=== PATIENT | male | born 1965 | race Caucasian/White ===

== ENCOUNTER 2017-12-15 02:10 | Inpatient (IN) ==
[2017-12-15 02:32] LABS: Baso # (Auto) 0.1 th/mm3 (0.0-0.2); Baso % (Auto) 0.9 % (0.0-2.0); Eos # (Auto) 0.5 th/mm3 (0.0-0.4); Eos % (Auto) 3.9 % (0.0-4.0); Hemoglobin 14.8 gm/dL (13.0-17.0); Lymph # (Auto) 5.4 th/mm3 (1.0-4.8); Lymph % (Auto) 40.6 % (9.0-44.0); Mean Corpuscular HGB Conc 35.3 % (32.0-36.0); Mean Corpuscular Volume 82.1 fL (80.0-100.0); Mean Platelet Volume 7.2 fL (7.0-11.0); Mono # (Auto) 0.8 th/mm3 (0.0-0.9); Mono % (Auto) 5.7 % (0.0-8.0); Neut # (Auto) 6.5 th/mm3 (1.8-7.7); Neut % (Auto) 48.9 % (16.0-70.0); Platelet Count 277 th/mm3 (150-450); Red Blood Count 5.11 mil/mm3 (4.50-5.90); Red Cell Distribution Width 13.2 % (11.6-17.2); White Blood Count 13.3 th/mm3 (4.0-11.0)
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
[2017-12-15] MEDS ORDERED: Bisacodyl 10 MG Supp RECTAL PRN ×2 (02:39→06:22)
[2017-12-15] MEDS ORDERED: Naloxone Inj 0.4 MG/ML Vial IV.PUSH PRN ×2 (02:39→02:45)
[2017-12-15] MEDS ORDERED: Post-op Orders (for Pharmacy) OTHER ONE (02:39)
[2017-12-15 02:43] LABS: Activated Partial Thrombo Time 23.9 sec (24.3-30.1); Prothrombin Time 9.7 sec (9.8-11.6)
[2017-12-15] MEDS ORDERED: Sod Chloride 0.9% Inj 1,000 ML IV.CONT SCH (02:45)
[2017-12-15 03:00] LABS: Eosinophils 3 % (0-4); Monocytes 5 % (0-8)
[2017-12-15 03:01] LABS: Lymphocytes 38 % (9-44)
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
[2017-12-15 03:04] LABS: Platelet Estimate Normal (Normal); Platelet Morphology Normal (Normal); RBC Morphology Normal (Normal)
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
[2017-12-15] MEDS: HYDROmorphone PCA Inj 6 MG/30 ML PCA.VIAL PCA PRN (03:26)
[2017-12-15] MEDS ORDERED: fentaNYL Citrate Inj 100 MCG/2 ML Ampul ONE ×5 (03:57→13:57)
[2017-12-15] MEDS ORDERED: ceFAZolin 2 GM Premix Inj 2 GM/50 ML PIGGYBACK IV.SIG ONE (03:57)
[2017-12-15] MEDS ORDERED: Gentamicin/NS 80 mg Premix 100 ML IV.SIG ONE (03:57)
[2017-12-15] MEDS ORDERED: Vancomycin Inj 1,000 MG in Sodium Chlor 0.9% Inj 250 ML IV.SIG SCH (04:00)
[2017-12-15] MEDS ORDERED: fentaNYL Citrate Inj 250 MCG/5 ML Ampul ONE (04:05)
[2017-12-15] MEDS ORDERED: Glycopyrrolate Inj 1 MG/5 ML Syringe IV.PUSH ONE (04:21)
[2017-12-15] MEDS ORDERED: Lidocaine PF 1% Inj 5 ML Syringe OTHER ONE ×2 (04:21→11:05)
[2017-12-15] MEDS ORDERED: Neostigmine Inj 5 MG/5 ML Syringe IV.PUSH ONE (04:21)
[2017-12-15] MEDS ORDERED: Sodium Chlor 0.9% Inj 250 ML IV.CONT ONE (04:21)
[2017-12-15] MEDS ORDERED: Succinylcholine Inj 100 MG/5 ML Syringe IV.PUSH ONE ×2 (04:21→11:05)
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
[2017-12-15] MEDS ORDERED: Zolpidem Tartrate 5 MG Tablet PO PRN (06:22)
[2017-12-15] MEDS ORDERED: Aluminum/Magnesium/Simethacone Susp 30 ML UDC PO PRN (06:22)
[2017-12-15] MEDS ORDERED: Morphine Inj 4 MG/ML Vial IV.PUSH PRN (06:22)
[2017-12-15] MEDS ORDERED: Post-op Orders (for Pharmacy) OTHER STA (06:22)
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
[2017-12-15] MEDS ORDERED: *Meperidine Inj 25 MG/ML Vial PERIprocedural Use ONLY ONE ×2 (07:10→13:08)
[2017-12-15] MEDS ORDERED: Senna/Docusate Sodium 8.6/50 MG Tablet PO SCH (09:00)
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
[2017-12-15] MEDS: Senna/Docusate Sodium 8.6/50 MG Tablet PO SCH ×2 (09:38→20:03)
[2017-12-15] MEDS: Multivitamin/Minerals Therapeutic Tablet PO SCH ×2 (09:38→20:03)
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
[2017-12-15] MEDS ORDERED: Esmolol Bolus Inj 100 MG/10 ML Vial IV.PUSH ONE (11:05)
[2017-12-15] MEDS ORDERED: *morphine SULFATE 4 MG/ML PERIprocedure ONLY ONE (13:45)
[2017-12-15] MEDS ORDERED: *Promethazine Inj 25 MG/ML Vial PERIprocedural use ONLY ONE (13:47)
--- NOTE | 2017-12-15 14:11 | P.CONOP ---
[facility] Orthopedics Consult Note - HPI Consult date: 12/15/17 Requesting physician: Destin Davis Consult reason: fracture Chief complaint: open Left Tib/Fib Review of Systems Constitutional: Denies weakness, Denies weight gain Eyes: Denies blurry vision Ears, Nose, Mouth, and Throat: Denies abnormal hearing Cardiovascular: Denies chest pain Respiratory: Denies cough, Denies wheezing Gastrointestinal: Denies abdominal pain Musculoskeletal: Reports joint pain Neurologic: Denies tingling/numbness/burning sensations Psychiatric: Denies anxiety, Denies depression PMFSH - History History Provided By: Patient - Medical History Medical History: Medical History (Last Reviewed 12/15/17 @ 04:30 by Aaron Kahn MD) HTN (hypertension), benign - Tobacco History Second Hand Smoke Exposure: No Tobacco Use In Past 30 Days: No Smoking Status: Former smoker - Alcohol History How Often Do You Have a Drink Containing Alcohol: 2 to 4 times a month - Substance Use History Substance History: No History of Abuse - Immunization History Tetanus Immunization: <5 Years Tetanus Immunization Year if Known: 2017 Hx Influenza Vaccine This Season: No Medications and Allergies Active Medications: Active Medications Hydrocodone Bitart/Acetaminophen ([place] 5/325) 1 tab PO Q4H PRN PRN Reason: PAIN LESS THAN 5 ON SCALE Hydrocodone Bitart/Acetaminophen ([place] 5/325) 2 tab PO Q6H PRN PRN Reason: PAIN SCALE 5 TO 10 Al Hydrox/Mg Hydrox/Simethicone (Mag-Al Plus Susp Liq) 30 ml PO Q6H PRN PRN Reason: INDIGESTION Al Hydroxide/Mg Hydroxide (Milk Of Magnesia Liq) 30 ml PO BID PRN PRN Reason: Mild Constipation Bisacodyl (Dulcolax Supp) 10 mg RECTAL DAILY PRN PRN Reason: SEVERE CONSITIPATION Diphenhydramine HCl (Benadryl) 25 mg PO Q6H PRN PRN Reason: ITCHING Metronidazole/Sodium Chloride (Flagyl 500 Mg Inj) 100 mls @ 200 mls/hr IV.SIG Q8H [facility] Stop: 12/15/17 19:29 Last Infusion: 12/15/17 03:58 Dose: Infused Hydromorphone/Sodium Chloride (Dilaudid Flange Machine Operator Inj) 6 mg in 30 mls @ 0 mls/hr CASE FITTER UNSCH PRN PRN Reason: per CASE FITTER parameters Last Admin: 12/15/17 03:26 Dose: 0 mls/hr Cefazolin Sodium 1,000 mg/ (Sodium Chloride) 100 mls @ 200 mls/hr IV.SIG Q6H [facility] Stop: 12/17/17 09:59 Last Infusion: 12/15/17 10:09 Dose: Infused Lactated Ringer's (Lr 1000 Ml Inj) 1,000 mls @ 80 mls/hr IV.CONT .[id number] [facility] Last Admin: 12/15/17 09:39 Dose: Not Given Gentamicin Sulfate/Sodium Chloride (Gentamicin/Ns 80 Mg Premix) 100 mls @ 200 mls/hr IV.SIG Q8H [facility] Stop: 12/17/17 13:59 Lactulose (Lactulose Liq) 30 ml PO DAILY PRN PRN Reason: SEVERE CONSITIPATION Miscellaneous Information ([facility] [place] Nursing Information) 0 each OTHER UNSCH PRN PRN Reason: SEE LABEL COMMENTS Stop: 12/16/17 07:09 Multivitamins/Minerals (Theragran-M) 1 tab PO BID [facility] Stop: 02/13/18 08:59 Last Admin: 12/15/17 09:38 Dose: 1 tab Naloxone HCl (Narcan Inj) 0.4 mg IV.PUSH UNSCH PRN PRN Reason: SEE LABEL COMMENTS Naloxone HCl (Narcan Inj) 0.4 mg IV.PUSH PRN PRN PRN Reason: SEE LABEL COMMENTS Ondansetron HCl (Zofran Inj) 4 mg IV.PUSH Q6H PRN PRN Reason: NAUSEA OR VOMITING Pantoprazole Sodium (Protonix) 40 mg PO DAILY [facility] Last Admin: 12/15/17 09:38 Dose: 40 mg Senna/Docusate Sodium (Jannet-Colace) 1 tab PO BID [facility] Last Admin: 12/15/17 09:38 Dose: 1 tab Sennosides (Senokot) 17.2 mg PO BID PRN PRN Reason: Moderate Constipation Sodium Chloride (Ns Flush) 2 ml IV.FLUSH BID [facility] Last Admin: 12/15/17 09:38 Dose: 2 ml Sodium Chloride (Ns Flush) 2 ml IV.FLUSH PRN PRN PRN Reason: FLUSH AFTER USING IV ACCESS Zolpidem Tartrate (Ambien) 5 mg PO HS PRN PRN Reason: INSOMNIA Allergies Allergy/AdvReac Type Severity Reaction Status Date / Time No Known Allergies Allergy Verified 12/15/17 03:18 Home Medications Medication Instructions Recorded Confirmed Type No Known Home Medications 12/15/17 12/15/17 History Exam Vital signs: Vital Signs 12/15/17 02:12 12/15/17 03:30 12/15/17 03:56 Temperature Pulse Rate Respiratory Rate 21 Blood Pressure Pulse Oximetry 98 94 L 12/15/17 07:08 12/15/17 07:30 12/15/17 07:45 Temperature 98.6 F Pulse Rate 105 H 106 H 109 H Respiratory Rate 15 16 14 Blood Pressure 168/113 H 157/82 H 165/92 H Pulse Oximetry 95 97 98 12/15/17 08:00 12/15/17 10:00 Temperature Pulse Rate 132 H 128 H Respiratory Rate Blood Pressure Pulse Oximetry 99 Intake & Output 12/14/17 12/15/17 12/15/17 18:59 06:59 18:59 Intake Total 100 / 100 100 / 100 Output Total 400 / 400 250 / 250 Balance -300 / -300 -150 / -150 Weight 117.6 kg Intake: IV 100 / 100 100 / 100 Ancef Inj 1,000 MG In NS Inj 100 / 100 100 ML @ 200 mls/hr IV.SIG Q6H [facility] Rx#:[id number] Flagyl 500 MG Inj 100 ML @ 200 100 / 100 mls/hr IV.SIG Q8H [facility] Rx#: [id number] Output: Urine 400 / 400 Urine Amount (Catheter) 250 / 250 Indwelling Urethral Catheter 250 / 250 Other: # Voids 1 Date of Last Bowel Movement 12/14/17 12/14/17 - Constitutional no acute distress - Routine HEENT Exam Head: Present: normocephalic, atraumatic Eye: Present: PERRL - Routine Respiratory Exam Absent: accessory muscle use, wheezes - Routine Cardiovascular Exam Present: RRR - Routine Abdominal Exam Present: soft. Absent: distended - Routine Extremities Exam Comments: Screening evaluation of the right upper and left lower extremities demonstrates painless passive ROM of all joints. There are post-operative dressings s/p left BKA. Evaluation of the left upper extremity demonstrates left ulnar gutter splint in tact. Nontender through exposed fingers. +EPL/FPL/FDS/FDP/EDC. Sensation is intact to the median/radial/ulnar nerve distribution. BCR<2s. - Routine Neurological Exam Present: alert, oriented X3 Results - Labs Result Diagrams: 12/15/17 02:13 Labs: Laboratory Results - last 24 hr 12/15/17 12/15/17 12/15/17 02:13 02:13 02:13 WBC 13.3 H RBC 5.11 Hgb 14.8 POC Hgb (Calc) 13.6 Hct 42.0 POC Hct 40.0 MCV 82.1 MCH 29.0 MCHC 35.3 RDW 13.2 Plt Count 277 MPV 7.2 Prelim Diff (Auto) Slide review pending Neut % (Auto) 48.9 Lymph % (Auto) 40.6 [place] % (Auto) 5.7 Eos % (Auto) 3.9 Baso % (Auto) 0.9 Neut # (Auto) 6.5 Lymph # (Auto) 5.4 H [place] # (Auto) 0.8 Eos # (Auto) 0.5 H Baso # (Auto) 0.1 WBC Differential Manual diff final Seg Neuts % (Manual) 54 Lymphocytes % (Manual) 38 Monocytes % (Manual) 5 Eosinophils % (Manual) 3 Abs Neuts (Manual) 7.2 Differential Comment . Platelet Estimate Normal Platelet Morphology Normal RBC Morphology Normal PT 9.7 L INR 1.0 APTT 23.9 L POC Sodium 140 POC Potassium 3.4 L POC Chloride 101 L POC BUN 15 POC Creatinine 1.1 POC Glucose 132 H Nasal Screen MRSA (PCR) Staph aureus (PCR) Blood Type Antibody Screen 12/15/17 12/15/17 02:13 03:25 WBC RBC Hgb POC Hgb (Calc) Hct POC Hct MCV MCH MCHC RDW Plt Count MPV Prelim Diff (Auto) Neut % (Auto) Lymph % (Auto) [place] % (Auto) Eos % (Auto) Baso % (Auto) Neut # (Auto) Lymph # (Auto) [place]vert # (Auto) Eos # (Auto) Baso # (Auto) WBC Differential Seg Neuts % (Manual) Lymphocytes % (Manual) Monocytes % (Manual) Eosinophils % (Manual) Abs Neuts (Manual) Differential Comment Platelet Estimate Platelet Morphology RBC Morphology PT INR APTT POC Sodium POC Potassium POC Chloride POC BUN POC Creatinine POC Glucose Nasal Screen MRSA (PCR) Negative Staph aureus (PCR) Positive Blood Type O Positive Antibody Screen Negative - Diagnostic results Imaging: Impressions Foot X-Ray 12/15/17 00:00 CONCLUSION: Limited fluoroscopic images left foot noted. Shoulder X-Ray 12/15/17 00:00 CONCLUSION: Negative exam with no evidence of acute fracture or malalignment. Chest X-Ray 12/15/17 02:12 CONCLUSION: No acute cardiopulmonary disease Pelvis X-Ray 12/15/17 02:12 CONCLUSION: No acute fracture Foot X-Ray 12/15/17 02:13 CONCLUSION: 1. Extensive soft tissue injury with distal fibular and tibia fractures. 2. Calcaneal fracture. Tibia/Fibula X-Ray 12/15/17 02:13 CONCLUSION: Displaced distal tibia and fibular fractures. Abdomen/Pelvis CT 12/15/17 02:19 CONCLUSION: 1. No abdominal visceral injury Chest CT 12/15/17 02:19 CONCLUSION: 1. No acute thoracic injury Hand X-Ray 12/15/17 02:19 CONCLUSION: Fourth metacarpal fracture Tibia/Fibula X-Ray 12/15/17 02:19 CONCLUSION: Soft tissue injury without definite fracture Cervical Spine CT 12/15/17 02:20 CONCLUSION: 1. No acute fracture or subluxation. Face CT 12/15/17 02:20 CONCLUSION: 1. Facial soft tissue swelling without fracture. Head CT 12/15/17 02:20 CONCLUSION: 1. No acute intracranial abnormality . Wrist/Hand x-ray: report reviewed, image reviewed Assessment and Plan - Assessment and Plan 52-year-old [place] [facility] [place] consult requested for left fourth metacarpal fracture. - XR reviewed demonstrates minimally displaced shaft fracture. Will order 3 view hand for completeness. Will plan to treat non-operatively. NWB to the left hand x 6 weeks. Will transition from ulnar gutter splint to ulnar gutter cast in the office. May weight bear through the left forearm and elbow. Follow up Dr. Ledezma with [facility] ([phone]) in 2 weeks for left hand. Other orthopedic injuries being managed by my partners: 1mangled left lower extremity with open comminuted distal tibia/fibula and highly comminuted significantly displaced calcaneal fracture s/p left BKA 2left foot metatarsal fracture.
[2017-12-15] MEDS: Gentamicin/NS 80 mg Premix 100 ML IV.SIG SCH ×2 (15:51→23:21)
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
--- NOTE | 2017-12-15 19:37 | ECG ---
Date Performed: 12/15/2017 Time Performed: 10:39:20 PTAGE: 89 years EKG: Sinus tachycardia. Inferior T wave changes are nonspecific Borderline ECG NO PREVIOUS TRACING DOCTOR: Tyler Salazar Interpretating Date/Time 12/15/2017 19:35:56
[2017-12-15] MEDS ORDERED: Enoxaparin Inj 30 MG/0.3 ML Syringe SQ SCH (21:00)
[2017-12-16] MEDS: Gentamicin/NS 80 mg Premix 100 ML IV.SIG SCH ×3 (06:32→21:00)
[2017-12-16] MEDS: HYDROmorphone PCA Inj 6 MG/30 ML PCA.VIAL PCA PRN ×3 (06:40→20:43)
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
[2017-12-16 09:00] LABS: Baso % (Auto) 0.2 % (0.0-2.0); Eos % (Auto) 0.1 % (0.0-4.0); Hematocrit 23.6 % (39.0-51.0); Hemoglobin 8.6 gm/dL (13.0-17.0); Lymph # (Auto) 2.2 th/mm3 (1.0-4.8); Lymph % (Auto) 17.4 % (9.0-44.0); Mean Corpuscular Hemoglobin 30.3 pg (27.0-34.0); Mean Corpuscular Volume 82.8 fL (80.0-100.0); Mono # (Auto) 1.5 th/mm3 (0.0-0.9); Mono % (Auto) 11.9 % (0.0-8.0); Neut # (Auto) 9.1 th/mm3 (1.8-7.7); Neut % (Auto) 70.4 % (16.0-70.0); Platelet Count 205 th/mm3 (150-450); Red Blood Count 2.85 mil/mm3 (4.50-5.90); Red Cell Distribution Width 13.4 % (11.6-17.2); White Blood Count 12.9 th/mm3 (4.0-11.0)
[2017-12-16 09:01] LABS: Mean Corpuscular HGB Conc 36.6 % (32.0-36.0)
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
[2017-12-16 09:27] LABS: Calcium 7.2 mg/dL (8.5-10.1); Carbon Dioxide 26.3 meq/L (21.0-32.0); Potassium 3.9 meq/L (3.5-5.1)
[2017-12-16 09:43] LABS: Total Protein 5.6 g/dL (6.4-8.2)
[2017-12-16] MEDS: Enoxaparin Inj 30 MG/0.3 ML Syringe SQ SCH ×2 (09:47→20:10)
[2017-12-16] MEDS: Senna/Docusate Sodium 8.6/50 MG Tablet PO SCH ×2 (09:48→20:10)
[2017-12-16] MEDS: Multivitamin/Minerals Therapeutic Tablet PO SCH ×2 (09:48→20:10)
[2017-12-17] MEDS: HYDROmorphone PCA Inj 6 MG/30 ML PCA.VIAL PCA PRN (06:17)
[2017-12-17] MEDS: Gentamicin/NS 80 mg Premix 100 ML IV.SIG SCH (06:19)
[2017-12-17 06:31] LABS: Baso % (Auto) 0.4 % (0.0-2.0); Eos # (Auto) 0.1 th/mm3 (0.0-0.4); Eos % (Auto) 0.9 % (0.0-4.0); Hemoglobin 7.3 gm/dL (13.0-17.0); Lymph # (Auto) 2.6 th/mm3 (1.0-4.8); Lymph % (Auto) 25.4 % (9.0-44.0); Mean Corpuscular Hemoglobin 30.3 pg (27.0-34.0); Mean Corpuscular Volume 82.3 fL (80.0-100.0); Mean Platelet Volume 7.7 fL (7.0-11.0); Mono # (Auto) 0.8 th/mm3 (0.0-0.9); Mono % (Auto) 7.8 % (0.0-8.0); Neut # (Auto) 6.7 th/mm3 (1.8-7.7); Neut % (Auto) 65.5 % (16.0-70.0); Platelet Count 166 th/mm3 (150-450); Red Blood Count 2.41 mil/mm3 (4.50-5.90); Red Cell Distribution Width 12.9 % (11.6-17.2); White Blood Count 10.2 th/mm3 (4.0-11.0)
[2017-12-17 06:39] LABS: Mean Corpuscular HGB Conc 36.8 % (32.0-36.0)
[2017-12-17 06:49] LABS: Hematocrit 19.8 % (39.0-51.0)
[2017-12-17 07:28] LABS: Anion Gap 7 meq/L (5-15); Blood Urea Nitrogen 8 mg/dL (7-18); Calcium 7.3 mg/dL (8.5-10.1); Carbon Dioxide 30.5 meq/L (21.0-32.0); Chloride 99 meq/L (98-107); Glomerular Filtration Rate Greater Than 89 mL/min (>89); Glucose,Random 112 mg/dL (74-106); Potassium 3.2 meq/L (3.5-5.1); Sodium 136 meq/L (136-145)
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
[2017-12-17] MEDS ORDERED: Sodium Chlor 0.9% Inj 250 ML IV.SIG SCH (08:00)
[2017-12-17 08:07] LABS: Total Protein 5.3 g/dL (6.4-8.2)
[2017-12-17] MEDS: Senna/Docusate Sodium 8.6/50 MG Tablet PO SCH ×2 (09:40→20:00)
[2017-12-17] MEDS: Multivitamin/Minerals Therapeutic Tablet PO SCH ×2 (09:40→20:02)
[2017-12-17] MEDS: Enoxaparin Inj 30 MG/0.3 ML Syringe SQ SCH ×2 (09:41→20:01)
--- NOTE | 2017-12-17 10:38 | P.CONNS ---
History of Present Illness Service: neurosurgery Consult date: 12/17/17 Requesting Physician: Destin Davis Reason for Consult: Cervical spine trauma Primary Care Provider: UNKNOWN Chief Complaint: Numbness in his hands PMFSH - History History Provided By: Patient - Medical History Medical History: Medical History (Last Reviewed 12/17/17 @ 09:07 by Noreen Dunham) HTN (hypertension), benign - Tobacco History Second Hand Smoke Exposure: No Tobacco Use In Past 30 Days: No Smoking Status: Former smoker - Alcohol History How Often Do You Have a Drink Containing Alcohol: 2 to 4 times a month - Substance Use History Substance History: No History of Abuse - Immunization History Tetanus Immunization: <5 Years Tetanus Immunization Year if Known: 2017 Hx Influenza Vaccine This Season: No Medications and Allergies Active Medications: Active Medications Al Hydrox/Mg Hydrox/Simethicone (Mag-Al Plus Susp Liq) 30 ml PO Q6H PRN PRN Reason: INDIGESTION Al Hydroxide/Mg Hydroxide (Milk Of Magnesia Liq) 30 ml PO BID [facility] Last Admin: 12/17/17 09:41 Dose: 30 ml Bisacodyl (Dulcolax Supp) 10 mg RECTAL DAILY PRN PRN Reason: SEVERE CONSITIPATION Diphenhydramine HCl (Benadryl) 25 mg PO Q6H PRN PRN Reason: ITCHING Enoxaparin Sodium (Lovenox Inj) 30 mg SQ BID [facility] Last Admin: 12/17/17 09:41 Dose: 30 mg Gabapentin (Neurontin) 300 mg PO TID [facility] Gentamicin Sulfate/Sodium Chloride (Gentamicin/Ns 80 Mg Premix) 100 mls @ 200 mls/hr IV.SIG Q8H [facility] Stop: 12/17/17 13:59 Last Infusion: 12/17/17 06:49 Dose: Infused Sodium Chloride (Ns Inj) 250 mls @ 15 mls/hr IV.SIG ONCE [facility] Stop: 12/18/17 00:39 Last Admin: 12/17/17 09:41 Dose: 15 mls/hr Lactulose (Lactulose Liq) 30 ml PO DAILY [facility] Last Admin: 12/17/17 09:41 Dose: Not Given Morphine Sulfate (Morphine Inj) 2 mg IV.PUSH Q3H PRN PRN Reason: BREAKTHROUGH PAIN Multivitamins/Minerals (Theragran-M) 1 tab PO BID [facility] Stop: 02/13/18 08:59 Last Admin: 12/17/17 09:40 Dose: 1 tab Ondansetron HCl (Zofran Inj) 4 mg IV.PUSH Q6H PRN PRN Reason: NAUSEA OR VOMITING Oxycodone/Acetaminophen (Percocet 10/325 Mg) 1 tab PO Q4H PRN PRN Reason: Acute Pain Oxycodone/Acetaminophen (Percocet 5/325 Mg) 1 tab PO Q4H PRN PRN Reason: Acute Pain Pantoprazole Sodium (Protonix) 40 mg PO DAILY [facility] Last Admin: 12/17/17 09:40 Dose: 40 mg Senna/Docusate Sodium (Jannet-Colace) 1 tab PO BID [facility] Last Admin: 12/17/17 09:40 Dose: 1 tab Sennosides (Senokot) 17.2 mg PO BID PRN PRN Reason: Moderate Constipation Sodium Chloride (Ns Flush) 2 ml IV.FLUSH BID [facility] Last Admin: 12/17/17 09:43 Dose: 2 ml Sodium Chloride (Ns Flush) 2 ml IV.FLUSH PRN PRN PRN Reason: FLUSH AFTER USING IV ACCESS Zolpidem Tartrate (Ambien) 5 mg PO HS PRN PRN Reason: INSOMNIA Allergies Allergy/AdvReac Type Severity Reaction Status Date / Time No Known Allergies Allergy Verified 12/15/17 03:18 Home Medications Medication Instructions Recorded Confirmed Type No Known Home Medications 12/15/17 12/15/17 History Exam Vital signs: Vital Signs 12/16/17 12:00 12/16/17 14:00 12/16/17 15:51 Temperature 98.5 F 98.6 F Pulse Rate 112 H 122 H 118 H Respiratory Rate 18 17 Blood Pressure 155/80 H 147/81 H Pulse Oximetry 95 94 L 12/16/17 16:00 12/16/17 18:00 12/16/17 20:00 Temperature 98.9 F Pulse Rate 109 H 120 H 122 H Respiratory Rate 18 Blood Pressure 163/91 H Pulse Oximetry 97 12/17/17 00:00 12/17/17 00:06 12/17/17 04:00 Temperature 98.5 F 98.8 F Pulse Rate 120 H 117 H 112 H Respiratory Rate 18 17 Blood Pressure 131/67 144/79 H Pulse Oximetry 98 94 L 12/17/17 08:00 12/17/17 09:01 Temperature 98.2 F 99.1 F Pulse Rate 113 H 113 H Respiratory Rate 18 20 Blood Pressure 156/86 H 167/86 H Pulse Oximetry 98 94 L Intake & Output 12/16/17 12/17/17 12/17/17 18:59 06:59 18:59 Intake Total 1250 / 1250 1120 / 1120 500 / 500 Output Total 400 / 400 1200 / 1200 450 / 450 Balance 850 / 850 -80 / -80 50 / 50 Weight 116.5 kg Intake: IV 400 / 400 400 / 400 100 / 100 Gentamicin/NS 80 mg Premix 100 200 / 200 200 / 200 ML @ 200 mls/hr IV.SIG Q8H [facility] Rx#:[id number] Ancef Inj 1,000 MG In NS Inj 200 / 200 200 / 200 100 ML @ 200 mls/hr IV.SIG Q6H [facility] Rx#:[id number] Oral 850 / 850 720 / 720 400 / 400 Intake (Blood Product) Amt 0 / 0 Rbc As-3 Leukoreduced Unit 0 / 0 [id number] Output: Urine 400 / 400 1200 / 1200 450 / 450 Narrative: GENERAL: 51 year old well-nourished, well developed male lying in bed with cervical collar in place. EYES: Pupils equal and round. No scleral icterus. NECK: Trachea midline. No JVD. Cervical collar. CARDIOVASCULAR: sinus rythm RESPIRATORY: No accessory muscle use. Lungs clear and diminished to auscultation bilaterally. GASTROINTESTINAL: Abdomen soft, non-tender, nondistended. + BS. MUSCULOSKELETAL: Extremities without cyanosis +1 left hand edema. LLE soft splint in place. MAEW, + perfused, 5/5 strength BUE and RLE. LLE not assessed d/ t injury. Right shoulder pain with palpation. NEUROLOGICAL: Awake and alert. Speech clear. Examination limited due to his orthopedic injuries and casts. Moves all extr Results - Laboratory Findings CBC and BMP: 12/17/17 05:30 12/17/17 05:30 Abnormal lab findings: Abnormal Labs 12/15/17 12/15/17 12/15/17 02:13 02:13 02:13 WBC 13.3 H RBC Hgb Hct MCHC Neut % (Auto) [place] % (Auto) Neut # (Auto) Lymph # (Auto) 5.4 H [place] # (Auto) Eos # (Auto) 0.5 H PT 9.7 L APTT 23.9 L POC Potassium 3.4 L Potassium POC Chloride 101 L Estimated GFR POC Glucose 132 H Random Glucose Calcium Prot Corrected Calcium Total Protein MTS Gel Crossmatch 12/16/17 12/16/17 12/17/17 08:12 08:12 05:30 WBC 12.9 H RBC 2.85 L 2.41 L Hgb 8.6 L D 7.3 L Hct 23.6 L 19.8 L* MCHC 36.6 H 36.8 H Neut % (Auto) 70.4 H [place] % (Auto) 11.9 H Neut # (Auto) 9.1 H Lymph # (Auto) [place] # (Auto) 1.5 H Eos # (Auto) PT APTT POC Potassium Potassium POC Chloride Estimated GFR 76 L POC Glucose Random Glucose 136 H Calcium 7.2 L* Prot Corrected Calcium 8.0 L Total Protein 5.6 L MTS Gel Crossmatch 12/17/17 12/17/17 05:30 07:24 WBC RBC Hgb Hct MCHC Neut % (Auto) [place] % (Auto) Neut # (Auto) Lymph # (Auto) [place] # (Auto) Eos # (Auto) PT APTT POC Potassium Potassium 3.2 L POC Chloride Estimated GFR POC Glucose Random Glucose 112 H Calcium 7.3 L* Prot Corrected Calcium 8.3 L Total Protein 5.3 L MTS Gel Crossmatch See Detail Assessment and Plan - Plan 52 year old male with multiple injuries including Concussion LEFT fourth metacarpal fx (non-op) Mangled LLE with open LEFT tib fib and calcaneus fx RLE contusion RIGHT shoulder contusion I have reviewed the clinical and radiological findings Foot X-Ray 12/15/17 00:00 CONCLUSION: Limited fluoroscopic images left foot noted. Shoulder X-Ray 12/15/17 00:00 CONCLUSION: Negative exam with no evidence of acute fracture or malalignment. Chest X-Ray 12/15/17 02:12 CONCLUSION: No acute cardiopulmonary disease Pelvis X-Ray 12/15/17 02:12 CONCLUSION: No acute fracture Foot X-Ray 12/15/17 02:13 CONCLUSION: 1. Extensive soft tissue injury with distal fibular and tibia fractures. 2. Calcaneal fracture. Tibia/Fibula X-Ray 12/15/17 02:13 CONCLUSION: Displaced distal tibia and fibular fractures. Abdomen/Pelvis CT 12/15/17 02:19 CONCLUSION: 1. No abdominal visceral injury Chest CT 12/15/17 02:19 CONCLUSION: 1. No acute thoracic injury Hand X-Ray 12/15/17 02:19 CONCLUSION: Fourth metacarpal fracture Tibia/Fibula X-Ray 12/15/17 02:19 CONCLUSION: Soft tissue injury without definite fracture Cervical Spine CT 12/15/17 02:20 CONCLUSION: 1. No acute fracture or subluxation. Face CT 12/15/17 02:20 CONCLUSION: 1. Facial soft tissue swelling without fracture. Head CT 12/15/17 02:20 CONCLUSION: 1. No acute intracranial abnormality Assessment and Plan Plan: Concussion. Neuro: neuro checks in a serial fashion. Supportive care Avoid second head injury Postconcussive education Cervical spine Strain. I reviewed his MRI of the cervical spine 1. No acute fracture or prevertebral soft tissue swelling. 2. Moderate bilateral foraminal narrowing at C4-5, C5-6 and C6-7. 3. Mild bilateral foraminal narrowing at C3-4. 4. Diffuse cervical spondylosis which is most significant at C5-6 and C6-7. 5. Mild diffuse asymmetric disc osteophyte complex to the left at C4-5 resulting in left lateral recess effacement. Mild diffuse symmetric disc osteophyte complexes are noted throughout the remainder of the disc spaces. Recommend nonoperative treatment. [place] collar for comfort only. Recommend flexion extension xrays c spine Pulmonary: aggressive pulmonary toilette, nasotracheal suction, and breathing treatments with nebulizers. LEFT fourth metacarpal fx Hand surgeon consulted D/W Dr Ledezma who requested an ulnar gutter splint be applied Non-op Pain control Mangled LLE with open LEFT tib fib and calcaneus fx Orthopedics consulted 12/15: left lower extremity multiple open fx debridement of skin through bone, left ankle subtalar arthrotomy with debridement, left lower extremity closed reduction of tibial pilon fx, calcaneal fx, fifth metatarsal/cuboid joint dislocation, and first and fifth metatarsal shaft fxs, left lower extremity exploration and suture ligation of posterior tibial artery traumatic disruption , left knee irrigation and debridement with closure of complex wound Vascular surgery consulted for LLE BKA Lower extremity amputated Pain control with Dilaudid BEND UP Bowel regimen Abx: Ancef and Gentamicin x 48 hours, Flagyl x 3 doses RLE contusion, RIGHT shoulder contusion Supportive care Pain control PT and OT evaluation Renal: Continue to monitor closely urine output, BUN and creatinine Endocrine: Continue to Monitor serial Acu checks and SSI as needed in detail ID continue to monitor for signs of infection Continue Protonix for stress ulcer prophylaxis Continue Chris hose and SCD's for DVT prophylaxis Further recommendations will be provided depending on the patient's clinical evaluation and follow up studies.
[2017-12-17] MEDS: oxyCODONE/Acetaminophen 10/325 Tablet PO PRN ×3 (11:00→19:53)
[2017-12-17] MEDS: Morphine Sulfate Inj 2 MG/ML Vial IV.PUSH PRN ×4 (11:33→23:26)
[2017-12-17] MEDS: Gabapentin 300 MG Capsule PO SCH ×2 (12:10→18:07)
--- NOTE | 2017-12-17 12:35 | P.PNOP ---
Subjective Interval history: The patient is resting in bed in [facility]. Patient reports mild to moderate pain to the left lower leg. Physical Exam Vital signs: Vital Signs 12/16/17 14:00 12/16/17 15:51 12/16/17 16:00 Temperature 98.6 F Pulse Rate 122 H 118 H 109 H Respiratory Rate 17 Blood Pressure 147/81 H Pulse Oximetry 94 L 12/16/17 18:00 12/16/17 20:00 12/17/17 00:00 Temperature 98.9 F 98.5 F Pulse Rate 120 H 122 H 120 H Respiratory Rate 18 18 Blood Pressure 163/91 H 131/67 Pulse Oximetry 97 98 12/17/17 00:06 12/17/17 04:00 12/17/17 08:00 Temperature 98.8 F 98.2 F Pulse Rate 117 H 112 H 113 H Respiratory Rate 17 18 Blood Pressure 144/79 H 156/86 H Pulse Oximetry 94 L 98 12/17/17 09:01 12/17/17 12:10 Temperature 99.1 F Pulse Rate 113 H Respiratory Rate 20 16 Blood Pressure 167/86 H Pulse Oximetry 94 L Intake & Output 12/16/17 12/17/17 12/17/17 18:59 06:59 18:59 Intake Total 1250 / 1250 1120 / 1120 500 / 500 Output Total 400 / 400 1200 / 1200 450 / 450 Balance 850 / 850 -80 / -80 50 / 50 Weight 116.5 kg Intake: IV 400 / 400 400 / 400 100 / 100 Gentamicin/NS 80 mg Premix 100 200 / 200 200 / 200 ML @ 200 mls/hr IV.SIG Q8H [facility] Rx#:[id number] Ancef Inj 1,000 MG In NS Inj 200 / 200 200 / 200 100 ML @ 200 mls/hr IV.SIG Q6H [facility] Rx#:[id number] Oral 850 / 850 720 / 720 400 / 400 Intake (Blood Product) Amt 0 / 0 Rbc As-3 Leukoreduced Unit 0 / 0 [id number] Output: Urine 400 / 400 1200 / 1200 450 / 450 Narrative: The patient's dressing is clean, dry, and intact. Sensation is intact to light touch distally. The patient has a splint to the left hand. - Urinary Catheter Management Indwelling Urethral Catheter Cath placed during this visit: yes, but has since been removed by the nurse Reason for continuing: Decision to DC catheter Insertion date: 12/15/17 Removal date: 12/16/17 Removal time: 06:30 Results - Labs CBC & Chem 7: 12/17/17 05:30 12/17/17 05:30 Laboratory Results - last 24 hr 12/17/17 12/17/17 12/17/17 05:30 05:30 07:24 WBC 10.2 RBC 2.41 L Hgb 7.3 L Hct 19.8 L* MCV 82.3 MCH 30.3 MCHC 36.8 H RDW 12.9 Plt Count 166 MPV 7.7 Prelim Diff (Auto) Slide review pending Neut % (Auto) 65.5 Lymph % (Auto) 25.4 [place] % (Auto) 7.8 Eos % (Auto) 0.9 Baso % (Auto) 0.4 Neut # (Auto) 6.7 Lymph # (Auto) 2.6 [place] # (Auto) 0.8 Eos # (Auto) 0.1 Baso # (Auto) 0.0 WBC Differential . Diff Scan Auto diff confirmed Differential Comment . Sodium 136 Potassium 3.2 L Chloride 99 Carbon Dioxide 30.5 Anion Gap 7 BUN 8 Creatinine 0.73 Estimated GFR Greater than 89 Random Glucose 112 H Calcium 7.3 L* Prot Corrected Calcium 8.3 L Total Protein 5.3 L MTS Gel Crossmatch See Detail Assessment and Plan - Assessment and Plan s/p [facility]. Hand surgery - left fourth metacarpal fracture. - NonWBing - Ulnar gutter Splint left arm. Keep dry and elevated - NonOp care. Follow up in [address] Ledezma. Ortho surgery - s/p severe left leg injury, comminuted open left tibia/fibula, extensive laceration S/P left BKA (by Dr. Alva) after attempted limb salvage with debridement, arthrotomies and wound repairs - Ortho stable. - PO pain control - Dressing intact left leg/stump. Continues dressings as written. - Ice operative limb bid. - No follow-up with Ortho required. The patient will follow with Dr. Jacobsen
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
[2017-12-18] MEDS: oxyCODONE/Acetaminophen 10/325 Tablet PO PRN ×5 (01:08→21:26)
[2017-12-18] MEDS: Morphine Sulfate Inj 2 MG/ML Vial IV.PUSH PRN ×4 (04:36→17:42)
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
[2017-12-18] MEDS: Enoxaparin Inj 30 MG/0.3 ML Syringe SQ SCH ×2 (08:31→21:25)
[2017-12-18] MEDS: Senna/Docusate Sodium 8.6/50 MG Tablet PO SCH ×2 (08:32→21:25)
[2017-12-18] MEDS: Gabapentin 300 MG Capsule PO SCH ×3 (08:33→17:37)
[2017-12-18] MEDS: Multivitamin/Minerals Therapeutic Tablet PO SCH ×2 (08:34→21:25)
[2017-12-18 09:06] LABS: Baso % (Auto) 0.2 % (0.0-2.0); Eos # (Auto) 0.2 th/mm3 (0.0-0.4); Eos % (Auto) 1.9 % (0.0-4.0); Hematocrit 24.9 % (39.0-51.0); Lymph % (Auto) 18.3 % (9.0-44.0); Mean Corpuscular Hemoglobin 29.6 pg (27.0-34.0); Mean Corpuscular Volume 82.2 fL (80.0-100.0); Mean Platelet Volume 7.5 fL (7.0-11.0); Mono # (Auto) 0.8 th/mm3 (0.0-0.9); Neut # (Auto) 8.1 th/mm3 (1.8-7.7); Neut % (Auto) 72.6 % (16.0-70.0); Platelet Count 219 th/mm3 (150-450); Red Blood Count 3.03 mil/mm3 (4.50-5.90); Red Cell Distribution Width 13.9 % (11.6-17.2); White Blood Count 11.2 th/mm3 (4.0-11.0)
[2017-12-18 09:37] LABS: Anion Gap 7 meq/L (5-15); Blood Urea Nitrogen 6 mg/dL (7-18); Calcium 7.9 mg/dL (8.5-10.1); Chloride 99 meq/L (98-107); Glomerular Filtration Rate Greater Than 89 mL/min (>89); Glucose,Random 132 mg/dL (74-106); Potassium 3.5 meq/L (3.5-5.1); Sodium 138 meq/L (136-145)
[2017-12-18 21:46] VITALS: RESP 18
[2017-12-19] MEDS: oxyCODONE/Acetaminophen 10/325 Tablet PO PRN ×3 (03:31→17:20)
[2017-12-19] MEDS: Gabapentin 300 MG Capsule PO SCH ×3 (08:38→17:20)
[2017-12-19] MEDS: Senna/Docusate Sodium 8.6/50 MG Tablet PO SCH (08:38)
[2017-12-19] MEDS: Multivitamin/Minerals Therapeutic Tablet PO SCH (08:38)
[2017-12-19] MEDS: Enoxaparin Inj 30 MG/0.3 ML Syringe SQ SCH (08:41)
[2017-12-19] MEDS: Ketorolac Inj 30 MG/ML (IVP) Vial IV.PUSH SCH ×2 (08:41→15:19)
[2017-12-19 12:16] VITALS: BP 181/87; PULSE 98; TEMP 97.9
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
[2017-12-19 13:24] VITALS: O2SAT 98
[2017-12-19] MEDS ORDERED: Magnesium Citrate Liq 300 ML Bottle PO ONE (13:30)
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
== END 2017-12-19 19:20 | disposition home or self-care (01) ==
LOC: NEPI 02:10 → NEDA 02:39 → EDBD 02:39 → N03 03:02 → N06 14:17
PROVIDERS: ADMIT Surgery; ATTEND Surgery

== ENCOUNTER 2018-01-08 13:35 | Inpatient (IN) ==
[2018-01-08] MEDS ORDERED: Acetaminophen 325 MG Tablet PO PRN (14:09)
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
[2018-01-08 17:00] LABS: Baso # (Auto) 0.1 th/mm3 (0.0-0.2); Baso % (Auto) 0.9 % (0.0-2.0); Eos # (Auto) 0.4 th/mm3 (0.0-0.4); Eos % (Auto) 4.5 % (0.0-4.0); Hematocrit 34.9 % (39.0-51.0); Hemoglobin 12.2 gm/dL (13.0-17.0); Lymph # (Auto) 2.3 th/mm3 (1.0-4.8); Lymph % (Auto) 27.3 % (9.0-44.0); Mean Corpuscular HGB Conc 34.9 % (32.0-36.0); Mean Corpuscular Volume 80.3 fL (80.0-100.0); Mean Platelet Volume 7.5 fL (7.0-11.0); Mono # (Auto) 0.4 th/mm3 (0.0-0.9); Mono % (Auto) 5.1 % (0.0-8.0); Neut # (Auto) 5.3 th/mm3 (1.8-7.7); Neut % (Auto) 62.2 % (16.0-70.0); Platelet Count 305 th/mm3 (150-450); Red Blood Count 4.34 mil/mm3 (4.50-5.90); Red Cell Distribution Width 14.4 % (11.6-17.2); White Blood Count 8.5 th/mm3 (4.0-11.0)
[2018-01-08 17:13] LABS: Calcium 8.4 mg/dL (8.5-10.1); Carbon Dioxide 27.9 meq/L (21.0-32.0); Potassium 3.3 meq/L (3.5-5.1)
[2018-01-08] MEDS: Piperacil/Tazo 3.375 GM Premix 50 ML IV.SIG SCH ×2 (17:29→23:59)
[2018-01-08] MEDS: Docusate Sodium 100 MG Capsule PO SCH (21:26)
[2018-01-09] MEDS: Piperacil/Tazo 3.375 GM Premix 50 ML IV.SIG SCH ×3 (08:04→23:04)
[2018-01-09] MEDS: Docusate Sodium 100 MG Capsule PO SCH ×2 (09:44→21:34)
[2018-01-09] MEDS: diazePAM 5 MG Tablet PO SCH ×3 (13:25→21:25)
[2018-01-09] MEDS: Chlorhexidine 4% Topical 120 APPLIC/120 ML Bottle TOPICAL SCH (14:00)
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
[2018-01-09] MEDS: Gabapentin 300 MG Capsule PO SCH (17:42)
[2018-01-10 04:48] LABS: Baso # (Auto) 0.1 th/mm3 (0.0-0.2); Eos # (Auto) 0.3 th/mm3 (0.0-0.4); Eos % (Auto) 4.5 % (0.0-4.0); Hematocrit 35.6 % (39.0-51.0); Hemoglobin 11.6 gm/dL (13.0-17.0); Lymph % (Auto) 28.7 % (9.0-44.0); Mean Corpuscular HGB Conc 32.7 % (32.0-36.0); Mean Corpuscular Hemoglobin 26.6 pg (27.0-34.0); Mean Corpuscular Volume 81.5 fL (80.0-100.0); Mean Platelet Volume 7.3 fL (7.0-11.0); Mono # (Auto) 0.5 th/mm3 (0.0-0.9); Mono % (Auto) 6.7 % (0.0-8.0); Neut # (Auto) 4.1 th/mm3 (1.8-7.7); Neut % (Auto) 59.1 % (16.0-70.0); Platelet Count 271 th/mm3 (150-450); Red Blood Count 4.37 mil/mm3 (4.50-5.90); Red Cell Distribution Width 14.5 % (11.6-17.2)
[2018-01-10 05:23] LABS: Anion Gap 7 meq/L (5-15); Blood Urea Nitrogen 6 mg/dL (7-18); Carbon Dioxide 27.9 meq/L (21.0-32.0); Chloride 109 meq/L (98-107); Glomerular Filtration Rate Greater Than 89 mL/min (>89); Glucose,Random 104 mg/dL (74-106); Potassium 4.4 meq/L (3.5-5.1); Sodium 144 meq/L (136-145)
[2018-01-10] MEDS: Piperacil/Tazo 3.375 GM Premix 50 ML IV.SIG SCH ×2 (08:51→17:28)
[2018-01-10] MEDS: diazePAM 5 MG Tablet PO SCH ×3 (08:51→17:27)
[2018-01-10] MEDS: Gabapentin 300 MG Capsule PO SCH ×3 (08:51→17:28)
[2018-01-10] MEDS: Docusate Sodium 100 MG Capsule PO SCH ×2 (08:52→20:41)
[2018-01-10] MEDS: Chlorhexidine 4% Topical 120 APPLIC/120 ML Bottle TOPICAL SCH (08:54)
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
[2018-01-10] MEDS: Lisinopril 20 MG Tablet PO SCH ×2 (11:42→20:38)
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
--- NOTE | 2018-01-10 17:43 | P.PNWCN ---
Wound Care Nurse Consult Additional information: Patient not seen, Doctor Davis has written wound care orders and wound care is not needed for dressing recommendations. Wound care is signing off. Please defer any issues with dressing and wound deterioration to Doctor Davis.
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
[2018-01-11] MEDS: Piperacil/Tazo 3.375 GM Premix 50 ML IV.SIG SCH ×3 (00:27→18:10)
[2018-01-11] MEDS: Gabapentin 300 MG Capsule PO SCH ×3 (08:05→18:10)
[2018-01-11] MEDS: Docusate Sodium 100 MG Capsule PO SCH ×2 (08:05→21:05)
[2018-01-11] MEDS: Lisinopril 20 MG Tablet PO SCH ×2 (08:05→21:05)
[2018-01-11] MEDS: diazePAM 5 MG Tablet PO SCH ×2 (08:11→21:05)
[2018-01-11] MEDS: Chlorhexidine 4% Topical 120 APPLIC/120 ML Bottle TOPICAL SCH (08:15)
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
[2018-01-12] MEDS: Piperacil/Tazo 3.375 GM Premix 50 ML IV.SIG SCH ×4 (00:03→23:56)
[2018-01-12 04:37] LABS: Baso # (Auto) 0.1 th/mm3 (0.0-0.2); Eos # (Auto) 0.5 th/mm3 (0.0-0.4); Eos % (Auto) 5.6 % (0.0-4.0); Hematocrit 35.7 % (39.0-51.0); Hemoglobin 12.4 gm/dL (13.0-17.0); Lymph # (Auto) 2.5 th/mm3 (1.0-4.8); Lymph % (Auto) 30.1 % (9.0-44.0); Mean Corpuscular HGB Conc 34.6 % (32.0-36.0); Mean Corpuscular Hemoglobin 27.5 pg (27.0-34.0); Mean Corpuscular Volume 79.5 fL (80.0-100.0); Mean Platelet Volume 7.4 fL (7.0-11.0); Mono # (Auto) 0.6 th/mm3 (0.0-0.9); Mono % (Auto) 7.4 % (0.0-8.0); Neut # (Auto) 4.6 th/mm3 (1.8-7.7); Neut % (Auto) 55.9 % (16.0-70.0); Platelet Count 262 th/mm3 (150-450); Red Cell Distribution Width 14.2 % (11.6-17.2); White Blood Count 8.2 th/mm3 (4.0-11.0)
[2018-01-12] MEDS: Docusate Sodium 100 MG Capsule PO SCH ×2 (08:22→20:57)
[2018-01-12] MEDS: Lisinopril 20 MG Tablet PO SCH ×2 (08:22→20:55)
[2018-01-12] MEDS: diazePAM 5 MG Tablet PO SCH ×2 (08:22→20:59)
[2018-01-12] MEDS: Gabapentin 300 MG Capsule PO SCH ×3 (08:24→17:00)
[2018-01-12] MEDS: Chlorhexidine 4% Topical 120 APPLIC/120 ML Bottle TOPICAL SCH (08:24)
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
[2018-01-13] MEDS: Gabapentin 300 MG Capsule PO SCH (08:27)
[2018-01-13] MEDS: Piperacil/Tazo 3.375 GM Premix 50 ML IV.SIG SCH (08:27)
[2018-01-13] MEDS: Chlorhexidine 4% Topical 120 APPLIC/120 ML Bottle TOPICAL SCH (08:28)
[2018-01-13] MEDS: Docusate Sodium 100 MG Capsule PO SCH (08:28)
[2018-01-13] MEDS: Lisinopril 20 MG Tablet PO SCH (08:28)
[2018-01-13 08:30] VITALS: BP 158/98; PULSE 83; RESP 19; TEMP 98.1; O2SAT 97
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
== END 2018-01-13 09:58 | disposition home or self-care (01) | DRG 566 ==
LOC: N07 13:35
PROVIDERS: ADMIT Surgery; ATTEND Surgery
CPT/HCPCS: 80048; 85025; 87070; 87077; 87186; 87205; 97110; 97116; 97162; J2543; J7120